=== PATIENT | male | born 1975 | race Hispanic/Latino ===

== ENCOUNTER 2018-11-18 11:16 | Inpatient (IN) ==
[2018-11-18] MEDS ORDERED: ROCEPHIN 1 GM in NS 50 ML IV ONE (11:58)
[2018-11-18] MEDS ORDERED: NS 1,000 ML IV ONE ×2 (11:58→16:26)
[2018-11-18] MEDS ORDERED: VANCOMYCIN 1 GM/NS 1 GM/250 ML IVPB IV ONE (11:58)
[2018-11-18] MEDS ORDERED: DIPHTHERIA/TETANUS ADULT IM ONE (11:59)
[2018-11-18 12:47] LABS: URINE SOURCE CLEAN CATCH
[2018-11-18 12:52] LABS: BILIRUBIN URINE NEGATIVE (NEGATIVE); BLOOD URINE TRACE (NEGATIVE); COLOR ORANGE; GLUCOSE URINE 100 mg/dL (NEGATIVE); KETONE URINE 20 mg/dL (NEGATIVE); LEUKOCYTES URINE NEGATIVE (NEGATIVE); NITRITE URINE NEGATIVE (NEGATIVE); PROTEIN URINE 70 mg/dL (NEGATIVE); SP GRAVITY URINE 1.026; TURBIDITY URINE CLEAR (CLEAR); UROBILINOGEN URINE 2 mg/dL (NORMAL)
[2018-11-18 12:53] LABS: BASO# 0.02 X1000 (0.0-0.2); BASO% 0.1 % (0.0-0.8); EOS# 0.02 X1000 (0.0-0.7); EOS% 0.1 % (0.0-10.0); HEMOGLOBIN 15.4 g/dL (14.0-18.0); IMM GRAN# 0.06 X1000 (0.0-0.04); IMM GRAN% 0.3 % (0.0-0.5); LYMPH# 1.24 X1000 (1.2-3.4); LYMPH% 6.1 % (20.5-51.1); MCV 85.8 FL (81-99); MONO# 2.02 X1000 (0.11-0.59); MPV 9.8 FL (7.4-10.4); NEUT# 16.89 X1000 (1.4-6.5); NEUT% 83.4 % (42.2-75.2); PLT 218 X1000 (130-400); RBC 5.13 XMIL (4.7-6.1); RDW 13.4 % (11.5-14.5); WBC 20.25 X1000 (4.8-10.8)
[2018-11-18 12:54] LABS: UR EPITHELIAL CELLS <10 /HPF (<10); URINE BACTERIA NEGATIVE /HPF; URINE RBC <10 /HPF (<10); URINE WBC <10 /HPF (<10)
[2018-11-18 12:59] LABS: INR 1.05; PROTIME 14.6 Seconds (11.0-16.0)
[2018-11-18 13:00] LABS: PTT 31.7 Seconds (22.3-41.8)
[2018-11-18 13:06] LABS: AGAP 14; ALB/GLOB RATIO 1.3; ALBUMIN 4.1 g/dL (3.5-5.0); ALKALINE PHOSPHATASE 95 U/L (32-122); BUN 12 mg/dL (8-22); CALCIUM 8.9 mg/dL (8.8-10.2); CHLORIDE 98 mmol/L (98-107); CK PROFILE 123 U/L (24-204); COSMO 271; CREATININE 0.8 mg/dL (0.7-1.2); ESTIMATED GFR > 60; GLUCOSE 182 mg/dL (70-104); GOT 18 U/L (10-34); GPT 22 U/L (10-44); POTASSIUM 3.8 mmol/L (3.5-5.1); SODIUM 133 mmol/L (136-145); TCO2 21 mmol/L (25-35); TOTAL BILIRUBIN 1.05 mg/dL (0.20-1.00); TOTAL PROTEIN 7.2 g/dL (6.3-8.3)
--- NOTE | 2018-11-18 14:32 | Diag Imaging Result Doc PS360 ---
EXAM: CHEST-1 VIEW INDICATION: POSSIBLE SEPSIS TECHNIQUE: One view COMPARISON: None. FINDINGS: The lungs are grossly clear. There is no discrete pleural fluid collection or pneumothorax. The cardiomediastinal silhouette and central vasculature are grossly unremarkable. IMPRESSION: No evidence of acute pathology by plain radiograph. Electronically signed by Harry Enamorado 11/18/2018 2:30 PM
[2018-11-18] MEDS ORDERED: NORCO-5 PO PRN (16:26)
[2018-11-18] MEDS ORDERED: TYLENOL PO PRN (16:26)
[2018-11-18] MEDS ORDERED: ZOFRAN IV PRN (16:26)
[2018-11-18] MEDS ORDERED: VANCOMYCIN IV PER PHARMACY MISC SCH (16:30)
--- NOTE | 2018-11-18 16:42 | HISTORY AND PHYSICAL ---
Is a 43-year-old male from [place]. He does not speak any Georgian. Dr. Bartlett was in there to translate and get a history and physical. He developed this itching on his abdomen and he denies any bite from spider or snake or envenomation that he is aware of and it just seemed to get a little red, more irritated and so came to the emergency room. On exam, he has an indolent area about 2 cm but I do not appreciate any fluctuance and surrounding area of cellulitis and excoriation. He did not have any adenopathy in the femoral area. He is not sure past medical history. He thinks he may have sugar issues, he may have high blood pressure issues. He is on some medications but he does not know what they are but somehow we listed Lipitor 1 a day, Celebrex 1 a day, gabapentin 1 a day and metformin 1 twice a day. FAMILY HISTORY: He states is unremarkable. I think there is some diabetes in the family. SOCIAL HISTORY: He drinks occasionally. Negative for tobacco. No illicit drugs reported. He is , lives with his . He works construction. REVIEW OF SYSTEMS: General: He does not report weight gain or loss or fever or chills. No change in vision or hearing acuity. No neck pain or adenopathy that he appreciates. Respiratory: No increased work of breathing or dyspnea. Cardiovascular: No chest pain or tachy palpitation. GI and : No gross hematuria, dysuria. Musculoskeletal, Neurologic: No focal complaints. Endocrinologic, hemologic: No significant history. LAB: White count 20,250, hematocrit 44, platelet count 218,000. Sodium 133, potassium 3.8, chloride 98, BUN 12, creatinine 0..8, calcium 8.9. Transaminases, AST was 18, ALT was 22, CK is 123, albumin 4.1. Pro time is 14.6, PTT is 31. Urinalysis showed 100 A for glucose and chest x-ray was clear. No sign of infiltrate. ASSESSMENT AND PLAN: 1. Cellulitis in the abdomen. He is a construction engineering manager. I do not see any subcutaneous infection. We will give him some vancomycin. He has agreed to come in but does not want to stay longer than 24 hours and so he wants to go home in the morning so we will probably put him on some p.o. either doxycycline or Bactrim. Will get a set of blood cultures and we will give him some normal saline at 85 mL an hour. 2. Hyperlipidemia. He is on Lipitor so we will continue his Lipitor. I am assuming that is 40 mg a day. 3. Diabetes mellitus. Check an A1c. Check his lipid profile. He is on metformin. We will make sure he is on 1000 mg of metformin twice a day and will see what his pattern sugars show and see hemoglobin A1c. We will apply some topical Bactroban and he can put that on 3 times a day over his abdomen. cc: Roel Cruz MD MTDD
[2018-11-18] MEDS ORDERED: BACTROBAN OINTMENT TOP SCH (17:00)
[2018-11-18] MEDS: GLUCOPHAGE PO SCH (18:08)
[2018-11-18] MEDS: ZOSYN 3.375 GM in NS 50 ML IV SCH ×2 (18:19→23:20)
[2018-11-18] MEDS: VANCOMYCIN 1,650 MG in NS 250 ML IV SCH (20:55)
[2018-11-18] MEDS: HUMULIN R SUBQ SCH (21:19)
[2018-11-19] MEDS ORDERED: ZOSYN ONE (03:51)
[2018-11-19] MEDS: ZOSYN 3.375 GM in NS 50 ML IV SCH (06:02)
[2018-11-19 06:32] LABS: BASO# 0.01 X1000 (0.0-0.2); BASO% 0.1 % (0.0-0.8); EOS# 0.11 X1000 (0.0-0.7); EOS% 0.7 % (0.0-10.0); HEMATOCRIT 37.8 % (42.0-52.0); HEMOGLOBIN 13.2 g/dL (14.0-18.0); IMM GRAN# 0.04 X1000 (0.0-0.04); IMM GRAN% 0.3 % (0.0-0.5); LYMPH# 1.13 X1000 (1.2-3.4); LYMPH% 7.4 % (20.5-51.1); MCH 30.4 PG (27-31); MCHC 34.9 g/dL (33-37); MCV 87.1 FL (81-99); MONO# 1.53 X1000 (0.11-0.59); MONO% 10.1 % (1.7-9.3); MPV 9.8 FL (7.4-10.4); NEUT% 81.4 % (42.2-75.2); PLT 171 X1000 (130-400); RBC 4.34 XMIL (4.7-6.1); RDW 13.3 % (11.5-14.5); WBC 15.22 X1000 (4.8-10.8)
[2018-11-19 06:36] LABS: INR 1.17; PROTIME 15.9 Seconds (11.0-16.0)
[2018-11-19 06:37] LABS: PTT 34.7 Seconds (22.3-41.8)
[2018-11-19 06:58] LABS: AGAP 10; ALBUMIN 3.3 g/dL (3.5-5.0); ALKALINE PHOSPHATASE 89 U/L (32-122); BUN 11 mg/dL (8-22); CALCIUM 8.3 mg/dL (8.8-10.2); CHLORIDE 101 mmol/L (98-107); COSMO 268; CREATININE 0.7 mg/dL (0.7-1.2); ESTIMATED GFR > 60; GLUCOSE 144 mg/dL (70-104); GOT 12 U/L (10-34); GPT 16 U/L (10-44); MAGNESIUM 1.8 mg/dL (1.5-2.7); POTASSIUM 3.6 mmol/L (3.5-5.1); SODIUM 133 mmol/L (136-145); TCO2 22 mmol/L (25-35); TOTAL BILIRUBIN 0.99 mg/dL (0.20-1.00); TOTAL PROTEIN 6.5 g/dL (6.3-8.3)
[2018-11-19] MEDS: HUMULIN R SUBQ SCH ×2 (07:02→12:25)
[2018-11-19 07:05] LABS: FREE T4 0.96 ng/dL (0.93-1.70); TSH 4.1 uIUmL (0.27-4.20)
[2018-11-19 07:12] LABS: HEMOGLOBIN A1C 8.2 % (4.8-6.0)
[2018-11-19] MEDS ORDERED: NEURONTIN PO SCH (09:00)
[2018-11-19] MEDS ORDERED: LIPITOR PO SCH (09:00)
[2018-11-19] MEDS ORDERED: CELEBREX PO SCH (09:00)
[2018-11-19] MEDS: GLUCOPHAGE PO SCH (09:45)
[2018-11-19] MEDS: VANCOMYCIN 1,650 MG in NS 250 ML IV SCH (12:23)
--- NOTE | 2018-11-19 13:09 | DISCHARGE SUMMARY ---
ADMISSION DATE: 11/18/2018 DISCHARGE DATE: 11/19/2018 PRIMARY CARE PHYSICIAN: He has no primary care physician. HOSPITAL COURSE: He is a 43-year-old [place] male who does not speak Hebrew. Dr. Bartlett was there to get a history and interpret. He was complaining of itching in his abdomen and he denies any bite or snake bite or envenomation that he is aware of. The area on his stomach is little red, a little excoriated. He did not really feel any fluctuance or any drainage. He had some surrounding cellulitis. He says he has diabetes. His white count was a little elevated at 20,000. He had no fever. He remained afebrile. We put a topical Bactroban on the belly. It was completely clear the following day, his white count was down to 15,000. He really was insistent on going home and I think appropriately, so I am going to put him on Bactrim Double Strength 1 twice a day just for 5 days and will emphasize the need for him to find a primary care physician. I put him on his medications that he had on his list for sugars and his sugars looked pretty well controlled while he is here. Hemoglobin A1c was 8.2, lipid profile pretty unremarkable and thyroid looked normal. So, we will discharge him home on Celebrex 200 mg a day, Lipitor 80 mg a day, Neurontin 100 mg daily, metformin 1000 mg b.i.d., Bactroban or mupirocin cream topically to his belly 3 times a day as long as there is a little redness. I think he can probably stop that. cc: Roel Cruz MD
[2018-11-19 15:10] VITALS: BP 115/63
== END 2018-11-19 17:09 | disposition home or self-care (01) | DRG 603 ==
LOC: ED 11:16 → 4N 11:17
PROVIDERS: ATTEND Emergency Medicine
CPT/HCPCS: 71010; 71045; 80053; 80061; 81001; 82550; 82607; 82746; 82948; 83036; 83605; 83721; 83735; 84439; 84443; 84484; 85025; 85610; 85730; 87040; 87088; 90471; 90714; 96365; 96366; 96367; 99285; A9270; J0696; J2405; J2543; J3370; J7030; J7050; XXXXX